=== PATIENT | female | born 1950 | race Caucasian/White ===

== ENCOUNTER 2021-02-17 15:15 | Observation (INO) | payer MEDICARE, OTHER ==
[~2021-02-17] VITALS: Ht 152.4 cm; Wt 113.4 kg
[2021-02-17 16:13] LABS: BASOPHILS % 0.2 % (0.0-1.0); EOSINOPHILS % 0.3 % (0.0-6.0); HEMOGLOBIN 9.9 g/dL (12.0-16.0); LYMPHOCYTES # (AUTO) 1.5 (1.0-3.2); LYMPHOCYTES % 14.6 % (18.0-39.1); MEAN CORPUSCULAR HEMOGLOBIN 28.6 pg (28-32); MEAN CORPUSCULAR HGB CONC 30.9 g/dL (31-35); MEAN CORPUSCULAR VOLUME 92.5 fL (81-99); MONOCYTES % 10.2 % (4.4-11.3); NEUTROPHILS # (AUTO) 7.4 (2.1-6.9); NEUTROPHILS % 73.8 % (38.7-80.0); PLATELET COUNT 204 x10e3/uL (140-360); RED BLOOD COUNT 3.46 x10e6/uL (3.6-5.1); RED CELL DISTRIBUTION WIDTH 14.1 % (11.7-14.4)
[2021-02-17 16:32] LABS: ALBUMIN/GLOBULIN RATIO 0.7 (0.8-2.0); ANION GAP 14.9 mmol/L (8-16); CALCIUM 8.1 mg/dL (8.4-10.2); CREATININE, SERUM 2.17 mg/dL (0.57-1.11); POTASSIUM 4.9 mmol/L (3.5-5.1)
[2021-02-17] MEDS ORDERED: DEXTROSE 50% SYRINGE 50 ML IV PRN (18:45)
[2021-02-17] MEDS ORDERED: SODIUM CHLORIDE FLUSH 10 ML SYR INJ PRN (18:45)
[2021-02-17 19:50] VITALS: BP 149/59
[2021-02-17] MEDS ORDERED: CRESTOR10 MG PO (20:21)
[2021-02-17] MEDS ORDERED: VASCEPA1 GM PO (20:21)
[2021-02-17] MEDS ORDERED: LEVOTHYROXINE50 MCG PO (20:21)
[2021-02-17] MEDS ORDERED: TRAZODONE HCL50 MG PO (20:21)
[2021-02-17] MEDS ORDERED: AMLODIPINE BESY10 MG PO (20:21)
[2021-02-17] MEDS ORDERED: ASPIRIN81 MG PO (20:21)
[2021-02-17] MEDS ORDERED: PROTONIX20 MG PO (20:21)
[2021-02-17] MEDS ORDERED: TRADJENTA5 MG PO (20:21)
[2021-02-17] MEDS ORDERED: HYDRALAZINE HCL50 MG PO (20:21)
[2021-02-17] MEDS ORDERED: LOSARTAN POTASS25 MG PO (20:21)
[2021-02-17] MEDS ORDERED: MULTI-VITAMIN1 EACH PO (20:21)
[2021-02-17] MEDS ORDERED: METOPROLOL TAR100 MG PO (20:21)
[2021-02-17] MEDS ORDERED: LEVOFLOXACIN250 MG PO (20:21)
[2021-02-17 20:35] VITALS: BP 149/59
[2021-02-17] MEDS ORDERED: LANTUS 3ML100 UNITS/ SQ (20:35)
[2021-02-17] MEDS ORDERED: HUMALOG100 UNIT/1 (20:35)
[2021-02-17 21:00] VITALS: BP 149/59
[2021-02-17] MEDS: INSULIN REGULAR, HUMAN 100 UNIT/1 ML 3ML VIAL SQ SCH (21:00)
[2021-02-17] MEDS: FUROSEMIDE INJ 10 MG/ML 4 ML VIAL IV SCH (21:00)
[2021-02-17 22:38] LABS: CREATINE KINASE MB 3.9 ng/mL (0-5.0)
[2021-02-18] VITALS (8 sets, daily range): BP systolic 141–157; BP diastolic 51–73
[2021-02-18 05:23] LABS: BASOPHILS % 0.1 % (0.0-1.0); EOSINOPHILS % 0.2 % (0.0-6.0); HEMOGLOBIN 10.1 g/dL (12.0-16.0); LYMPHOCYTES # (AUTO) 1.6 (1.0-3.2); LYMPHOCYTES % 15.9 % (18.0-39.1); MEAN CORPUSCULAR HGB CONC 31.6 g/dL (31-35); MONOCYTES % 10.1 % (4.4-11.3); NEUTROPHILS # (AUTO) 7.4 (2.1-6.9); PLATELET COUNT 213 x10e3/uL (140-360); RED BLOOD COUNT 3.48 x10e6/uL (3.6-5.1); RED CELL DISTRIBUTION WIDTH 13.9 % (11.7-14.4)
[2021-02-18 06:02] LABS: ALBUMIN 2.9 g/dL (3.5-5.0); ALBUMIN/GLOBULIN RATIO 0.8 (0.8-2.0); ANION GAP 16.4 mmol/L (8-16); CALCIUM 8.1 mg/dL (8.4-10.2); CREATININE, SERUM 2.24 mg/dL (0.57-1.11); POTASSIUM 4.4 mmol/L (3.5-5.1)
[2021-02-18 06:07] LABS: CALCIUM IONIZED 1.1 mmol/L (1.09-1.30)
[2021-02-18 06:15] LABS: CREATINE KINASE MB 4.1 ng/mL (0-5.0)
[2021-02-18 06:24] LABS: MAGNESIUM 1.9 MG/DL (1.3-2.1); PHOSPHORUS 3.2 MG/DL (2.3-4.7)
[2021-02-18 06:45] LABS: FERRITIN 160.8 ng/mL (4.63-204.00)
[2021-02-18] MEDS: INSULIN REGULAR, HUMAN 100 UNIT/1 ML 3ML VIAL SQ SCH ×4 (07:30→21:00)
[2021-02-18] MEDS ORDERED: AMLODIPINE BESYLATE 10 MG TAB PO SCH (09:00)
[2021-02-18] MEDS ORDERED: LEVOTHYROXINE SODIUM 25 MCG TABLET PO SCH (09:00)
[2021-02-18] MEDS ORDERED: PANTOPRAZOLE SOD 40 MG TABEC PO SCH (09:00)
[2021-02-18] MEDS: FUROSEMIDE INJ 10 MG/ML 4 ML VIAL IV SCH ×2 (10:29→22:27)
[2021-02-18] MEDS: ASPIRIN 81 MG CHEW TAB PO SCH (10:30)
[2021-02-18] MEDS: LOSARTAN POTASSIUM 25 MG TAB PO SCH (10:43)
[2021-02-18] MEDS: METOPROLOL TARTRATE 50 MG TAB PO SCH ×2 (10:53→17:29)
[2021-02-18 11:18] LABS: CREATINE KINASE MB 2.8 ng/mL (0-5.0)
[2021-02-18] MEDS ORDERED: INSULIN GLARGINE 100 UNITS/ML VIAL SQ SCH (21:00)
[2021-02-18] MEDS ORDERED: CRESTOR 10MG PO SCH (21:00)
[2021-02-18] MEDS ORDERED: TRAZODONE HCL 50 MG TAB PO SCH (21:00)
[2021-02-19] VITALS: BP 107/39
[2021-02-19 04:00] VITALS: BP 117/42
[2021-02-19 05:36] LABS: ANION GAP 17.6 mmol/L (8-16); CALCIUM 8.7 mg/dL (8.4-10.2); CREATININE, SERUM 2.52 mg/dL (0.57-1.11); POTASSIUM 4.6 mmol/L (3.5-5.1)
[2021-02-19] MEDS ORDERED: LEVOTHYROXINE SODIUM 25 MCG TABLET PO SCH (06:00)
[2021-02-19] MEDS ORDERED: PANTOPRAZOLE SOD 40 MG TABEC PO SCH (07:30)
[2021-02-19] MEDS: INSULIN REGULAR, HUMAN 100 UNIT/1 ML 3ML VIAL SQ SCH ×2 (07:30→12:16)
[2021-02-19 07:49] VITALS: BP 110/59
[2021-02-19 08:20] VITALS: BP 110/59
[2021-02-19] MEDS: ASPIRIN 81 MG CHEW TAB PO SCH (09:28)
[2021-02-19] MEDS: LOSARTAN POTASSIUM 25 MG TAB PO SCH (09:28)
[2021-02-19 11:47] VITALS: BP 144/54
[2021-02-19] MEDS ORDERED: TESSALON PERLE100 MG PO (13:45)
[2021-02-19] MEDS ORDERED: LASIX10 MG/ML PO (13:45)
[2021-02-19] MEDS ORDERED: ONDANSETRON ODT4 MG PO (13:46)
[2021-02-19] MEDS ORDERED: LASIX40 MG PO (14:07)
[2021-02-19] MEDS: METOPROLOL TARTRATE 50 MG TAB PO SCH (15:04)
== END 2021-02-19 14:58 | disposition home or self-care (01) ==
LOC: ER 17:32 → ERHOLD 18:43 → MED/SURG 19:57
PROVIDERS: ADMIT Internal Medicine; ATTEND Internal Medicine
DX: I11.0 Hypertensive heart disease with heart failure (principal); I50.9 Heart failure, unspecified; I10 Essential (primary) hypertension; E11.9 Type 2 diabetes mellitus without complications; E03.9 Hypothyroidism, unspecified; Z90.49 Acquired absence of other specified parts of digestive tract; E66.01 Morbid (severe) obesity due to excess calories; E78.5 Hyperlipidemia, unspecified; Z85.3 Personal history of malignant neoplasm of breast; J96.01 Acute respiratory failure with hypoxia; N17.9 Acute kidney failure, unspecified; J90 Pleural effusion, not elsewhere classified; Z20.822 Contact with and (suspected) exposure to COVID-19
CPT/HCPCS: 36415 ×3; 71045; 71250; 78597; 80048; 80053 ×2; 82550 ×2; 82553 ×2; 82607; 82728; 82746; 82948 ×3; 83540; 83605; 83735; 83880; 84100; 84466; 84484 ×2; 85025 ×2; 85379; 87040; 93005; 93306; 97161; 97530; 99285; A9540; G0378 ×3; J1815; J1817; J1940 ×2; S0164 ×2; U0002

== ENCOUNTER 2021-04-01 09:57 | Inpatient (IN) | payer MEDICARE, OTHER ==
[~2021-04-01] VITALS: Ht 157.5 cm; Wt 87.5 kg
[~2021-04-01 09:57] MED LIST: AMLODIPINE BESY10 MG PO; ASPIRIN81 MG PO; CRESTOR10 MG PO; HUMALOG100 UNIT/1; HYDRALAZINE HCL50 MG PO; LANTUS 3ML100 UNITS/ SQ; LASIX10 MG/ML PO; LASIX40 MG PO; LEVOFLOXACIN250 MG PO; LEVOTHYROXINE50 MCG PO; LOSARTAN POTASS25 MG PO; METOPROLOL TAR100 MG PO; MULTI-VITAMIN1 EACH PO; ONDANSETRON ODT4 MG PO; PROTONIX20 MG PO; TESSALON PERLE100 MG PO; TRADJENTA5 MG PO; TRAZODONE HCL50 MG PO; VASCEPA1 GM PO
[2021-04-01 11:15] LABS: BASOPHILS % 0.3 % (0.0-1.0); EOSINOPHILS # (AUTO) 0.1 (0.0-0.4); EOSINOPHILS % 0.5 % (0.0-6.0); HEMATOCRIT 34.4 % (34.2-44.1); HEMOGLOBIN 10.4 g/dL (12.0-16.0); LYMPHOCYTES % 18.7 % (18.0-39.1); MEAN CORPUSCULAR HEMOGLOBIN 28.6 pg (28-32); MEAN CORPUSCULAR HGB CONC 30.2 g/dL (31-35); MEAN CORPUSCULAR VOLUME 94.5 fL (81-99); MONOCYTES % 9.2 % (4.4-11.3); NEUTROPHILS # (AUTO) 7.6 (2.1-6.9); PLATELET COUNT 202 x10e3/uL (140-360); RED BLOOD COUNT 3.64 x10e6/uL (3.6-5.1); RED CELL DISTRIBUTION WIDTH 13.8 % (11.7-14.4)
[2021-04-01 11:27] LABS: ALBUMIN 3.3 g/dL (3.5-5.0); ALBUMIN/GLOBULIN RATIO 0.7 (0.8-2.0); ANION GAP 13.3 mmol/L (8-16); CALCIUM 8.5 mg/dL (8.4-10.2); CREATININE, SERUM 2.11 mg/dL (0.57-1.11); POTASSIUM 4.3 mmol/L (3.5-5.1)
[2021-04-01 11:37] LABS: CREATINE KINASE MB 0.7 ng/mL (0-5.0)
[2021-04-01] MEDS ORDERED: FUROSEMIDE INJ 10 MG/ML 4 ML VIAL IV ONE (13:00)
[2021-04-01] MEDS ORDERED: DEXTROSE 50% SYRINGE 50 ML IV PRN ×3 (13:30→18:45)
[2021-04-01 14:43] LABS: CREATINE KINASE MB 0.8 ng/mL (0-5.0)
[2021-04-01] MEDS: INSULIN REGULAR, HUMAN 100 UNIT/1 ML SQ SCH ×2 (16:47→21:00)
[2021-04-01] MEDS ORDERED: ALBUTEROL/IPRATROPIUM 3 ML NEB NEB PRN (17:15)
[2021-04-01] MEDS ORDERED: DOCUSATE SODIUM 100 MG CAP PO PRN (17:15)
[2021-04-01] MEDS ORDERED: LIDOCAINE 4% PATCH TP PRN (17:15)
[2021-04-01] MEDS ORDERED: SIMETHICONE 80 MG CHEW PO PRN (17:15)
[2021-04-01] MEDS ORDERED: MELATONIN 5 MG TABLET PO PRN (17:15)
[2021-04-01] MEDS ORDERED: ONDANSETRON HCL INJ 2MG/ML 2ML 2 MG/ML VIAL IV PRN (17:15)
[2021-04-01] MEDS ORDERED: HYDRALAZINE HCL 20 MG/ML VIAL IV PRN (17:15)
[2021-04-01] MEDS ORDERED: POTASSIUM CHLORIDE 20 MEQ TAB CR PO PRN (17:15)
[2021-04-01] MEDS ORDERED: TRAMADOL HCL 50 MG TAB PO PRN (17:15)
[2021-04-01] MEDS ORDERED: ACETAMINOPHEN 325 MG TAB PO PRN (17:15)
[2021-04-01] MEDS ORDERED: DIPHENHYDRAMINE HCL 25 MG CAP PO PRN (17:15)
[2021-04-01] MEDS ORDERED: BENZONATATE 100 MG CAP PO PRN (17:15)
[2021-04-01] MEDS ORDERED: METOPROLOL TARTRATE 50 MG TAB PO SCH (17:30)
[2021-04-01] MEDS ORDERED: ASPIRIN 81 MG CHEW TAB PO ONE (17:45)
[2021-04-01] MEDS: FUROSEMIDE INJ 10 MG/ML 4 ML VIAL IV SCH (19:50)
[2021-04-01] MEDS: HEPARIN SOD (PORCINE) 5,000 UNIT/ML VIAL SC SCH (21:00)
[2021-04-01] MEDS: SIMVASTATIN 20 MG TAB PO SCH (21:00)
[2021-04-02] VITALS (7 sets, daily range): BP systolic 130–168; BP diastolic 38–73
[2021-04-02] MEDS: FUROSEMIDE INJ 10 MG/ML 4 ML VIAL IV SCH ×4 (03:00→20:45)
[2021-04-02] MEDS ORDERED: ACETAMINOPHEN 325 MG TAB ONE (04:33)
[2021-04-02] MEDS ORDERED: FUROSEMIDE INJ 10 MG/ML 4 ML VIAL ONE (04:34)
[2021-04-02 05:21] LABS: BASOPHILS % 0.4 % (0.0-1.0); EOSINOPHILS # (AUTO) 0.1 (0.0-0.4); HEMATOCRIT 33.3 % (34.2-44.1); HEMOGLOBIN 10.1 g/dL (12.0-16.0); LYMPHOCYTES # (AUTO) 1.6 (1.0-3.2); LYMPHOCYTES % 14.5 % (18.0-39.1); MEAN CORPUSCULAR HEMOGLOBIN 28.5 pg (28-32); MEAN CORPUSCULAR HGB CONC 30.3 g/dL (31-35); MEAN CORPUSCULAR VOLUME 93.8 fL (81-99); MONOCYTES # (AUTO) 0.9 (0.2-0.8); MONOCYTES % 8.4 % (4.4-11.3); NEUTROPHILS # (AUTO) 8.3 (2.1-6.9); NEUTROPHILS % 75.1 % (38.7-80.0); PLATELET COUNT 181 x10e3/uL (140-360); RED BLOOD COUNT 3.55 x10e6/uL (3.6-5.1); RED CELL DISTRIBUTION WIDTH 13.5 % (11.7-14.4)
[2021-04-02 05:39] LABS: ALBUMIN/GLOBULIN RATIO 0.6 (0.8-2.0); ANION GAP 14.9 mmol/L (8-16); CALCIUM 8.7 mg/dL (8.4-10.2); CREATININE, SERUM 2.19 mg/dL (0.57-1.11); POTASSIUM 3.9 mmol/L (3.5-5.1)
[2021-04-02 06:14] LABS: CREATINE KINASE MB 1.1 ng/mL (0-5.0)
[2021-04-02] MEDS: LEVOTHYROXINE SODIUM 25 MCG TABLET PO SCH (06:26)
[2021-04-02 06:37] LABS: CHOL/HDL RATIO 2.6 (3.0-3.6); MAGNESIUM 1.8 MG/DL (1.3-2.1); PHOSPHORUS 3.7 MG/DL (2.3-4.7)
[2021-04-02 06:57] LABS: THYROID STIMULATING HORMONE 2.257 uIU/mL (0.350-4.940)
[2021-04-02] MEDS: INSULIN REGULAR, HUMAN 100 UNIT/1 ML SQ SCH ×4 (07:30→20:47)
[2021-04-02] MEDS: PANTOPRAZOLE SOD 40 MG TABEC PO SCH (07:30)
[2021-04-02] MEDS: HEPARIN SOD (PORCINE) 5,000 UNIT/ML VIAL SC SCH ×2 (09:00→20:47)
[2021-04-02] MEDS: AMLODIPINE BESYLATE 10 MG TAB PO SCH (09:00)
[2021-04-02] MEDS ORDERED: PANTOPRAZOLE SOD 40 MG TABEC PO SCH (09:00)
[2021-04-02] MEDS ORDERED: ASPIRIN 81 MG ENTERIC COATED PO SCH (09:00)
[2021-04-02] MEDS: METOPROLOL TARTRATE 50 MG TAB PO SCH ×2 (09:00→20:45)
[2021-04-02] MEDS: ASPIRIN 81 MG CHEW TAB PO SCH (09:00)
[2021-04-02] MEDS: SIMVASTATIN 20 MG TAB PO SCH (20:45)
[2021-04-03] VITALS (7 sets, daily range): BP systolic 129–149; BP diastolic 49–62
[2021-04-03] MEDS: FUROSEMIDE INJ 10 MG/ML 4 ML VIAL IV SCH ×3 (04:38→20:50)
[2021-04-03] MEDS: LEVOTHYROXINE SODIUM 25 MCG TABLET PO SCH (05:58)
[2021-04-03] MEDS: PANTOPRAZOLE SOD 40 MG TABEC PO SCH (09:33)
[2021-04-03] MEDS: ASPIRIN 81 MG CHEW TAB PO SCH (09:35)
[2021-04-03] MEDS: METOPROLOL TARTRATE 50 MG TAB PO SCH ×2 (09:36→20:50)
[2021-04-03] MEDS: AMLODIPINE BESYLATE 10 MG TAB PO SCH (09:37)
[2021-04-03] MEDS: HEPARIN SOD (PORCINE) 5,000 UNIT/ML VIAL SC SCH ×2 (09:46→21:25)
[2021-04-03] MEDS: INSULIN REGULAR, HUMAN 100 UNIT/1 ML SQ SCH ×4 (09:48→21:26)
[2021-04-03 14:51] LABS: BASOPHILS % 0.4 % (0.0-1.0); EOSINOPHILS # (AUTO) 0.2 (0.0-0.4); EOSINOPHILS % 2.2 % (0.0-6.0); HEMATOCRIT 33.1 % (34.2-44.1); HEMOGLOBIN 10.1 g/dL (12.0-16.0); LYMPHOCYTES # (AUTO) 1.7 (1.0-3.2); LYMPHOCYTES % 23.9 % (18.0-39.1); MEAN CORPUSCULAR HEMOGLOBIN 28.9 pg (28-32); MEAN CORPUSCULAR HGB CONC 30.5 g/dL (31-35); MEAN CORPUSCULAR VOLUME 94.8 fL (81-99); MONOCYTES # (AUTO) 0.7 (0.2-0.8); MONOCYTES % 10.3 % (4.4-11.3); NEUTROPHILS # (AUTO) 4.5 (2.1-6.9); NEUTROPHILS % 62.8 % (38.7-80.0); PLATELET COUNT 208 x10e3/uL (140-360); RED BLOOD COUNT 3.49 x10e6/uL (3.6-5.1); RED CELL DISTRIBUTION WIDTH 13.2 % (11.7-14.4)
[2021-04-03 15:08] LABS: ANION GAP 13.1 mmol/L (8-16); CALCIUM 8.3 mg/dL (8.4-10.2); CREATININE, SERUM 2.62 mg/dL (0.57-1.11); POTASSIUM 4.1 mmol/L (3.5-5.1)
[2021-04-03] MEDS: SIMVASTATIN 20 MG TAB PO SCH (21:15)
[2021-04-04] VITALS: BP 145/64
[2021-04-04 04:00] VITALS: BP 142/62
[2021-04-04] MEDS: FUROSEMIDE INJ 10 MG/ML 4 ML VIAL IV SCH (04:15)
[2021-04-04] MEDS: LEVOTHYROXINE SODIUM 25 MCG TABLET PO SCH (05:51)
[2021-04-04 06:17] LABS: BASOPHILS % 0.3 % (0.0-1.0); EOSINOPHILS # (AUTO) 0.2 (0.0-0.4); EOSINOPHILS % 2.9 % (0.0-6.0); HEMATOCRIT 33.1 % (34.2-44.1); HEMOGLOBIN 10.3 g/dL (12.0-16.0); LYMPHOCYTES # (AUTO) 1.8 (1.0-3.2); LYMPHOCYTES % 27.5 % (18.0-39.1); MEAN CORPUSCULAR HEMOGLOBIN 28.9 pg (28-32); MEAN CORPUSCULAR HGB CONC 31.1 g/dL (31-35); MEAN CORPUSCULAR VOLUME 92.7 fL (81-99); MONOCYTES # (AUTO) 0.8 (0.2-0.8); MONOCYTES % 11.4 % (4.4-11.3); NEUTROPHILS # (AUTO) 3.8 (2.1-6.9); NEUTROPHILS % 57.6 % (38.7-80.0); PLATELET COUNT 211 x10e3/uL (140-360); RED BLOOD COUNT 3.57 x10e6/uL (3.6-5.1)
[2021-04-04 06:37] LABS: ANION GAP 14.5 mmol/L (8-16); CALCIUM 8.3 mg/dL (8.4-10.2); CREATININE, SERUM 2.45 mg/dL (0.57-1.11); POTASSIUM 3.5 mmol/L (3.5-5.1)
[2021-04-04 07:53] VITALS: BP 132/51
[2021-04-04] MEDS: METOPROLOL TARTRATE 50 MG TAB PO SCH (08:42)
[2021-04-04] MEDS: PANTOPRAZOLE SOD 40 MG TABEC PO SCH (08:42)
[2021-04-04] MEDS: ASPIRIN 81 MG CHEW TAB PO SCH (08:42)
[2021-04-04] MEDS: AMLODIPINE BESYLATE 10 MG TAB PO SCH (08:43)
[2021-04-04] MEDS: HEPARIN SOD (PORCINE) 5,000 UNIT/ML VIAL SC SCH (08:44)
[2021-04-04] MEDS: INSULIN REGULAR, HUMAN 100 UNIT/1 ML SQ SCH ×3 (08:48→16:43)
[2021-04-04 08:57] VITALS: BP 132/51
[2021-04-04 11:37] VITALS: BP 138/65
[2021-04-04 15:17] VITALS: BP 119/51
[2021-04-04] MEDS ORDERED: MECLIZINE HCL 12.5 MG TAB PO PRN (15:30)
[2021-04-04] MEDS ORDERED: SCOPOLAMINE 1.5 MG PATCH TOP NR (15:30)
== END 2021-04-04 19:00 | disposition home or self-care (01) | DRG 291 ==
LOC: ER 10:15 → ERHOLD 12:09 → MED/SURG 04-02 00:20 → OBSVTOIN 04-02 17:55
PROVIDERS: ADMIT Internal Medicine; ATTEND Internal Medicine
DX: I13.0 Hypertensive heart and chronic kidney disease with heart failure and stage 1 through stage 4 chronic kidney disease, or unspecified chronic kidney disease (principal); I50.33 Acute on chronic diastolic (congestive) heart failure; N18.4 Chronic kidney disease, stage 4 (severe); E11.22 Type 2 diabetes mellitus with diabetic chronic kidney disease; Z79.899 Other long term (current) drug therapy; Z79.4 Long term (current) use of insulin; E78.5 Hyperlipidemia, unspecified; G47.33 Obstructive sleep apnea (adult) (pediatric); E03.9 Hypothyroidism, unspecified; E66.9 Obesity, unspecified; Z68.35 Body mass index [BMI] 35.0-35.9, adult; I27.22 Pulmonary hypertension due to left heart disease; I35.0 Nonrheumatic aortic (valve) stenosis; Z20.822 Contact with and (suspected) exposure to COVID-19
CPT/HCPCS: 36415; 71045; 71250; 80048; 80053; 80061; 82550; 82553; 82948; 83036; 83735; 83880; 84100; 84443; 84484; 85025; 93005; 93306; G0378; J1644; J1817; J1940; U0002

== ENCOUNTER 2021-09-27 13:04 | Inpatient (IN) | payer MEDICARE, OTHER ==
[~2021-09-27] VITALS: Ht 157.5 cm; Wt 87.5 kg
[2021-09-27 13:23] LABS: BASOPHILS % 0.5 % (0.0-1.0); EOSINOPHILS # (AUTO) 0.1 (0.0-0.4); EOSINOPHILS % 0.9 % (0.0-6.0); HEMATOCRIT 31.5 % (34.2-44.1); HEMOGLOBIN 9.4 g/dL (12.0-16.0); LYMPHOCYTES # (AUTO) 1.3 (1.0-3.2); LYMPHOCYTES % 18.9 % (18.0-39.1); MEAN CORPUSCULAR HEMOGLOBIN 28.7 pg (28-32); MEAN CORPUSCULAR HGB CONC 29.8 g/dL (31-35); MONOCYTES # (AUTO) 0.5 (0.2-0.8); MONOCYTES % 6.8 % (4.4-11.3); NEUTROPHILS # (AUTO) 4.8 (2.1-6.9); NEUTROPHILS % 72.1 % (38.7-80.0); PLATELET COUNT 283 x10e3/uL (140-360); RED BLOOD COUNT 3.28 x10e6/uL (3.6-5.1)
[2021-09-27 13:32] LABS: CLARITY,URINE CLEAR (CLEAR); COLOR,URINE YELLOW (YELLOW); INR 1.06; KETONES,URINE NEGATIVE (NEGATIVE); LEUKOCYTE ESTERASE ,URINE NEGATIVE (NEGATIVE); NITRITE,URINE NEGATIVE (NEGATIVE); PARTIAL THROMBOPLASTIN TIME 35.6 seconds (23.8-35.5); PROTEIN,URINE DIPSTICK 1+ (NEGATIVE); PROTHROMBIN TIME 14.6 seconds (11.9-14.5); URINE UROBILINOGEN 0.2 mg/dL (0.2 - 1)
[2021-09-27 13:38] LABS: EPITHELIAL CELLS,URINE MODERATE /LPF; RBC,URINE 0-5 /HPF (0-5); WBC,URINE (MAN) 0-5 /HPF (0-5)
[2021-09-27 13:39] LABS: ALBUMIN 3.2 g/dL (3.5-5.0); ALBUMIN/GLOBULIN RATIO 0.7 (0.8-2.0); ANION GAP 11.5 mmol/L (8-16); CREATININE, SERUM 2.75 mg/dL (0.57-1.11); POTASSIUM 4.5 mmol/L (3.5-5.1)
[2021-09-27 13:45] LABS: CREATINE KINASE MB 1.6 ng/mL (0-5.0)
[2021-09-27] MEDS ORDERED: CEFTRIAXONE 1 GM in SODIUM CHLORIDE 0.9% 50ML 50 ML IV ONE (15:00)
[2021-09-27] MEDS ORDERED: FUROSEMIDE INJ 10 MG/ML 4 ML VIAL IV ONE ×2 (15:30→17:30)
[2021-09-27 15:53] LABS: ABG HCO3 21 mmol/L (22-26); ABG PCO2 41 mmHg (35-45); ABG PH 7.34 (7.35-7.45); ABG PO2 151 mmHg (80-105)
[2021-09-27 15:54] LABS: ABG TCO2 23
[2021-09-27] MEDS ORDERED: ONDANSETRON HCL INJ 2MG/ML 2ML 2 MG/ML VIAL IV PRN (17:15)
[2021-09-27 21:54] LABS: CREATINE KINASE MB 1.4 ng/mL (0-5.0)
[2021-09-27] MEDS: FUROSEMIDE INJ 10 MG/ML 4 ML VIAL IV SCH (22:00)
[2021-09-28] VITALS (7 sets, daily range): BP systolic 140–147; BP diastolic 51–60
[2021-09-28 05:08] LABS: BASOPHILS % 0.3 % (0.0-1.0); EOSINOPHILS # (AUTO) 0.1 (0.0-0.4); EOSINOPHILS % 1.4 % (0.0-6.0); HEMATOCRIT 29.9 % (34.2-44.1); LYMPHOCYTES # (AUTO) 1.3 (1.0-3.2); LYMPHOCYTES % 20.1 % (18.0-39.1); MEAN CORPUSCULAR HEMOGLOBIN 28.8 pg (28-32); MEAN CORPUSCULAR HGB CONC 30.1 g/dL (31-35); MEAN CORPUSCULAR VOLUME 95.8 fL (81-99); MONOCYTES # (AUTO) 0.6 (0.2-0.8); MONOCYTES % 8.9 % (4.4-11.3); NEUTROPHILS # (AUTO) 4.4 (2.1-6.9); NEUTROPHILS % 68.8 % (38.7-80.0); PLATELET COUNT 292 x10e3/uL (140-360); RED BLOOD COUNT 3.12 x10e6/uL (3.6-5.1); RED CELL DISTRIBUTION WIDTH 14.1 % (11.7-14.4)
[2021-09-28 05:20] LABS: ALBUMIN 3.1 g/dL (3.5-5.0); ALBUMIN/GLOBULIN RATIO 0.7 (0.8-2.0); ANION GAP 10.2 mmol/L (8-16); CALCIUM 9.2 mg/dL (8.4-10.2); CHOL/HDL RATIO 4.9 (3.0-3.6); CREATININE, SERUM 2.61 mg/dL (0.57-1.11); POTASSIUM 4.2 mmol/L (3.5-5.1)
[2021-09-28 05:53] LABS: CREATINE KINASE MB 1.2 ng/mL (0-5.0)
[2021-09-28] MEDS: FUROSEMIDE INJ 10 MG/ML 4 ML VIAL IV SCH ×3 (06:00→21:22)
[2021-09-28] MEDS ORDERED: BENZONATATE 100 MG CAP PO PRN (09:45)
[2021-09-28] MEDS ORDERED: DEXTROSE 50% SYRINGE 50 ML IV PRN (09:45)
[2021-09-28] MEDS ORDERED: LEVOTHYROXINE SODIUM 50 MCG TAB ONE (10:03)
[2021-09-28] MEDS: METOPROLOL TARTRATE 50 MG TAB PO SCH ×2 (10:07→16:16)
[2021-09-28] MEDS: LEVOTHYROXINE SODIUM 25 MCG TABLET PO SCH (10:07)
[2021-09-28] MEDS: PANTOPRAZOLE SOD 40 MG TABEC PO SCH (10:07)
[2021-09-28] MEDS: INSULIN LISPRO 100 UNIT/1 ML 3ML VIAL SQ SCH ×5 (13:11→21:00)
[2021-09-28] MEDS: NON-FORMULARY MEDICATION (Icosapent Ethyl (Vascepa) 2 CAP) PO SCH (16:21)
[2021-09-28 16:31] LABS: CREATINE KINASE MB 1.2 ng/mL (0-5.0)
[2021-09-28] MEDS: INSULIN GLARGINE 100 UNITS/ML VIAL SQ SCH (21:00)
[2021-09-28] MEDS: SIMVASTATIN 20 MG TAB PO SCH (21:22)
[2021-09-28] MEDS: TRAZODONE HCL 50 MG TAB PO SCH (21:22)
[2021-09-29] VITALS (8 sets, daily range): BP systolic 112–138; BP diastolic 42–94
[2021-09-29 05:40] LABS: BASOPHILS % 0.4 % (0.0-1.0); EOSINOPHILS # (AUTO) 0.2 (0.0-0.4); EOSINOPHILS % 2.4 % (0.0-6.0); HEMATOCRIT 30.6 % (34.2-44.1); HEMOGLOBIN 9.7 g/dL (12.0-16.0); LYMPHOCYTES # (AUTO) 1.7 (1.0-3.2); LYMPHOCYTES % 25.2 % (18.0-39.1); MEAN CORPUSCULAR HGB CONC 31.7 g/dL (31-35); MEAN CORPUSCULAR VOLUME 91.6 fL (81-99); MONOCYTES # (AUTO) 0.8 (0.2-0.8); MONOCYTES % 11.9 % (4.4-11.3); NEUTROPHILS % 59.7 % (38.7-80.0); PLATELET COUNT 308 x10e3/uL (140-360); RED BLOOD COUNT 3.34 x10e6/uL (3.6-5.1); RED CELL DISTRIBUTION WIDTH 13.7 % (11.7-14.4)
[2021-09-29 06:12] LABS: ALBUMIN 2.9 g/dL (3.5-5.0); ALBUMIN/GLOBULIN RATIO 0.6 (0.8-2.0); ANION GAP 17.2 mmol/L (8-16); CALCIUM 9.4 mg/dL (8.4-10.2); CREATININE, SERUM 2.93 mg/dL (0.57-1.11); POTASSIUM 4.2 mmol/L (3.5-5.1)
[2021-09-29 06:33] LABS: CHOL/HDL RATIO 4.4 (3.0-3.6)
[2021-09-29] MEDS: FUROSEMIDE INJ 10 MG/ML 4 ML VIAL IV SCH ×3 (06:44→22:00)
[2021-09-29] MEDS: LEVOTHYROXINE SODIUM 25 MCG TABLET PO SCH (06:44)
[2021-09-29 06:59] LABS: THYROID STIMULATING HORMONE 1.319 uIU/mL (0.350-4.940)
[2021-09-29] MEDS: INSULIN LISPRO 100 UNIT/1 ML 3ML VIAL SQ SCH ×7 (09:00→21:00)
[2021-09-29] MEDS: NON-FORMULARY MEDICATION (Icosapent Ethyl (Vascepa) 2 CAP) PO SCH ×2 (09:00→16:47)
[2021-09-29] MEDS: MULTIVITAMINS/MINERALS TAB PO SCH (09:40)
[2021-09-29] MEDS: ASPIRIN 81 MG CHEW TAB PO SCH (09:40)
[2021-09-29] MEDS: METOPROLOL TARTRATE 50 MG TAB PO SCH ×2 (09:40→16:47)
[2021-09-29] MEDS: PANTOPRAZOLE SOD 40 MG TABEC PO SCH (09:40)
[2021-09-29 11:07] LABS: CREATININE,URINE RANDOM 44.55 mg/dL (47-110); TOTAL PROTEIN, URINE 32.5 mg/dL (1-14)
[2021-09-29 11:08] LABS: PROTEIN/CREATININE RATIO,URINE 0.73
[2021-09-29] MEDS: INSULIN GLARGINE 100 UNITS/ML VIAL SQ SCH (21:00)
[2021-09-29] MEDS: TRAZODONE HCL 50 MG TAB PO SCH (21:30)
[2021-09-29] MEDS: SIMVASTATIN 20 MG TAB PO SCH (21:30)
[2021-09-30] VITALS (11 sets, daily range): BP systolic 106–134; BP diastolic 39–73
[2021-09-30] MEDS: FUROSEMIDE INJ 10 MG/ML 4 ML VIAL IV SCH ×4 (00:03→21:36)
[2021-09-30] MEDS: LEVOTHYROXINE SODIUM 25 MCG TABLET PO SCH (05:43)
[2021-09-30 06:08] LABS: ALBUMIN 2.9 g/dL (3.5-5.0); ALBUMIN/GLOBULIN RATIO 0.6 (0.8-2.0); ANION GAP 16.9 mmol/L (8-16); CALCIUM 9.6 mg/dL (8.4-10.2); CREATININE, SERUM 3.12 mg/dL (0.57-1.11); POTASSIUM 3.9 mmol/L (3.5-5.1)
[2021-09-30] MEDS: INSULIN LISPRO 100 UNIT/1 ML 3ML VIAL SQ SCH ×7 (07:30→20:40)
[2021-09-30] MEDS: NON-FORMULARY MEDICATION (Icosapent Ethyl (Vascepa) 2 CAP) PO SCH ×3 (09:00→17:00)
[2021-09-30] MEDS: METOPROLOL TARTRATE 50 MG TAB PO SCH ×2 (09:00→17:00)
[2021-09-30] MEDS: PANTOPRAZOLE SOD 40 MG TABEC PO SCH (09:53)
[2021-09-30] MEDS: ASPIRIN 81 MG CHEW TAB PO SCH (09:54)
[2021-09-30] MEDS: MULTIVITAMINS/MINERALS TAB PO SCH (09:54)
[2021-09-30] MEDS: INSULIN GLARGINE 100 UNITS/ML VIAL SQ SCH (20:41)
[2021-09-30] MEDS: SIMVASTATIN 20 MG TAB PO SCH (21:36)
[2021-09-30] MEDS: TRAZODONE HCL 50 MG TAB PO SCH (21:36)
[2021-10-01] VITALS (7 sets, daily range): BP systolic 128–138; BP diastolic 52–63
[2021-10-01] MEDS: FUROSEMIDE INJ 10 MG/ML 4 ML VIAL IV SCH (05:09)
[2021-10-01] MEDS: LEVOTHYROXINE SODIUM 25 MCG TABLET PO SCH (05:09)
[2021-10-01] MEDS: INSULIN LISPRO 100 UNIT/1 ML 3ML VIAL SQ SCH ×7 (07:30→19:58)
[2021-10-01] MEDS: METOPROLOL TARTRATE 50 MG TAB PO SCH ×2 (09:00→16:51)
[2021-10-01] MEDS: NON-FORMULARY MEDICATION (Icosapent Ethyl (Vascepa) 2 CAP) PO SCH ×2 (09:00→17:00)
[2021-10-01] MEDS: PANTOPRAZOLE SOD 40 MG TABEC PO SCH (09:13)
[2021-10-01] MEDS: MULTIVITAMINS/MINERALS TAB PO SCH (09:15)
[2021-10-01] MEDS: ASPIRIN 81 MG CHEW TAB PO SCH (11:00)
[2021-10-01] MEDS ORDERED: ONDANSETRON HCL 4 MG ORAL DISINTEGRATING TAB PO PRN (14:15)
[2021-10-01] MEDS: BUMETANIDE 1 MG TAB PO SCH (17:08)
[2021-10-01 18:16] LABS: CREATININE,URINE RANDOM 45.68 mg/dL (47-110); TOTAL PROTEIN 24HR, URINE 625.2 mg/24hr (50-100); TOTAL PROTEIN, URINE 30.5 mg/dL (1-14)
[2021-10-01] MEDS: INSULIN GLARGINE 100 UNITS/ML VIAL SQ SCH (19:58)
[2021-10-01] MEDS: SIMVASTATIN 20 MG TAB PO SCH (20:04)
[2021-10-01] MEDS: TRAZODONE HCL 50 MG TAB PO SCH (20:04)
[2021-10-02] VITALS: BP 131/55
[2021-10-02 04:00] VITALS: BP 109/44
[2021-10-02] MEDS: LEVOTHYROXINE SODIUM 25 MCG TABLET PO SCH (05:46)
[2021-10-02 06:46] LABS: ALBUMIN 3.1 g/dL (3.5-5.0); ALBUMIN/GLOBULIN RATIO 0.7 (0.8-2.0); ANION GAP 15.8 mmol/L (8-16); CALCIUM 9.6 mg/dL (8.4-10.2); CREATININE, SERUM 3.28 mg/dL (0.57-1.11); POTASSIUM 3.8 mmol/L (3.5-5.1)
[2021-10-02 08:25] VITALS: BP 117/55
[2021-10-02 08:45] VITALS: BP 117/55
[2021-10-02] MEDS: NON-FORMULARY MEDICATION (Icosapent Ethyl (Vascepa) 2 CAP) PO SCH ×2 (09:00→17:00)
[2021-10-02] MEDS: ASPIRIN 81 MG CHEW TAB PO SCH (09:10)
[2021-10-02] MEDS: PANTOPRAZOLE SOD 40 MG TABEC PO SCH (09:10)
[2021-10-02] MEDS: MULTIVITAMINS/MINERALS TAB PO SCH (09:10)
[2021-10-02] MEDS: METOPROLOL TARTRATE 50 MG TAB PO SCH ×2 (09:10→17:08)
[2021-10-02] MEDS: BUMETANIDE 1 MG TAB PO SCH ×2 (09:10→17:08)
[2021-10-02] MEDS: INSULIN LISPRO 100 UNIT/1 ML 3ML VIAL SQ SCH ×6 (09:11→17:09)
[2021-10-02 15:07] VITALS: BP 129/87
== END 2021-10-02 17:55 | disposition home or self-care (01) | DRG 291 ==
LOC: ER 14:43 → ERHOLD 17:08 → MED/SURG3 09-28 10:58
PROVIDERS: ADMIT Internal Medicine; ATTEND Internal Medicine
DX: I13.0 Hypertensive heart and chronic kidney disease with heart failure and stage 1 through stage 4 chronic kidney disease, or unspecified chronic kidney disease (principal); I50.33 Acute on chronic diastolic (congestive) heart failure; J96.00 Acute respiratory failure, unspecified whether with hypoxia or hypercapnia; N17.9 Acute kidney failure, unspecified; N18.4 Chronic kidney disease, stage 4 (severe); I42.9 Cardiomyopathy, unspecified; E11.22 Type 2 diabetes mellitus with diabetic chronic kidney disease; Z79.899 Other long term (current) drug therapy; Z08 Encounter for follow-up examination after completed treatment for malignant neoplasm; Z85.3 Personal history of malignant neoplasm of breast; E78.5 Hyperlipidemia, unspecified; R01.1 Cardiac murmur, unspecified; I35.0 Nonrheumatic aortic (valve) stenosis; E11.42 Type 2 diabetes mellitus with diabetic polyneuropathy; E11.319 Type 2 diabetes mellitus with unspecified diabetic retinopathy without macular edema; K21.9 Gastro-esophageal reflux disease without esophagitis; R60.0 Localized edema; Z20.822 Contact with and (suspected) exposure to COVID-19
CPT/HCPCS: 36415; 36600; 71045; 71250; 76770; 80053; 80061; 81001; 81050; 82550; 82553; 82570; 82575; 82607; 82746; 82805; 82948; 83036; 83540; 83605; 83735; 83880; 84156; 84443; 84466; 84484; 85025; 85610; 85730; 87040; 87086; 93005; 93306; 94660; 94799; 97139; 99251; 99285; J0696; J1940; U0002

== ENCOUNTER 2023-02-27 06:41 | Emergency (ER) | payer MEDICARE, OTHER ==
[~2023-02-27] VITALS: Ht 157.5 cm; Wt 87.5 kg
[2023-02-27 07:05] LABS: BASOPHILS % 0.2 % (0.0-1.0); EOSINOPHILS # (AUTO) 0.3 (0.0-0.4); EOSINOPHILS % 3.6 % (0.0-6.0); HEMATOCRIT 31.2 % (34.2-44.1); HEMOGLOBIN 9.9 g/dL (12.0-16.0); LYMPHOCYTES # (AUTO) 2.8 (1.0-3.2); LYMPHOCYTES % 30.5 % (18.0-39.1); MEAN CORPUSCULAR HEMOGLOBIN 29.4 pg (28-32); MEAN CORPUSCULAR HGB CONC 31.7 g/dL (31-35); MEAN CORPUSCULAR VOLUME 92.6 fL (81-99); MONOCYTES # (AUTO) 0.8 (0.2-0.8); MONOCYTES % 8.6 % (4.4-11.3); NEUTROPHILS # (AUTO) 5.2 (2.1-6.9); NEUTROPHILS % 56.9 % (38.7-80.0); PLATELET COUNT 167 x10e3/uL (140-360); RED BLOOD COUNT 3.37 x10e6/uL (3.6-5.1); RED CELL DISTRIBUTION WIDTH 17.6 % (11.7-14.4)
[2023-02-27 07:17] LABS: INR 0.91; PROTHROMBIN TIME 12.8 seconds (11.9-14.5)
[2023-02-27 07:27] LABS: ALANINE AMINOTRANSFERASE 13 IU/L (0-55); ALKALINE PHOSPHATASE 60 IU/L (40-150); ANION GAP 14.4 mmol/L (8-16); BLOOD UREA NITROGEN 31 mg/dL (7-26); BUN/CREATININE RATIO 8 (6-25); CALCIUM 8.9 mg/dL (8.4-10.2); CARBON DIOXIDE 32 mmol/L (22-29); CHLORIDE 101 mmol/L (98-107); CREATININE, SERUM 4.04 mg/dL (0.57-1.11); GLUCOSE 99 mg/dL (74-118); MAGNESIUM 2.2 MG/DL (1.3-2.1); POTASSIUM 3.4 mmol/L (3.5-5.1); SODIUM 144 mmol/L (136-145)
[2023-02-27 07:31] LABS: ALBUMIN/GLOBULIN RATIO 0.1 (0.8-2.0)
[2023-02-27 07:43] LABS: ALBUMIN 3.3 g/dL (3.5-5.0)
[2023-02-27] MEDS ORDERED: ASPIRIN 81 MG CHEW TAB PO STA (08:07)
[2023-02-27] MEDS ORDERED: ASPIRIN 81 MG ENTERIC COATED PO ONE (08:13)
[2023-02-27] MEDS ORDERED: CLOPIDOGREL BISULFATE 75 MG TAB ONE ×2 (08:13)
[2023-02-27] MEDS ORDERED: CLOPIDOGREL BISULFATE 300 MG TAB-DO NOT STOCK PO ONE (08:15)
[2023-02-27] MEDS ORDERED: HEPARIN 25,000 UNIT/D5W 250ML 800 UNIT in DEXTROSE 5% 250ML 250 ML IV SCH (08:30)
[2023-02-27] MEDS ORDERED: HEPARIN 25,000 UNIT DRIP IV ONE (08:32)
[2023-02-27 09:15] VITALS: O2SAT 98
[2023-02-27] MEDS ORDERED: NITROGLYCERIN 2% OINT 1 GM PKT ONE (09:58)
[2023-02-27] MEDS ORDERED: NITROGLYCERIN 2% OINT 1 GM PKT TOP ONE (10:00)
== END 2023-02-27 10:05 | disposition other institution (70) ==
LOC: ER 06:44
DX: R06.02 Shortness of breath (principal); I21.4 Non-ST elevation (NSTEMI) myocardial infarction; I12.9 Hypertensive chronic kidney disease with stage 1 through stage 4 chronic kidney disease, or unspecified chronic kidney disease; E11.22 Type 2 diabetes mellitus with diabetic chronic kidney disease; N18.9 Chronic kidney disease, unspecified; Z99.2 Dependence on renal dialysis; I50.9 Heart failure, unspecified; Z20.822 Contact with and (suspected) exposure to COVID-19; R94.31 Abnormal electrocardiogram [ECG] [EKG]
CPT/HCPCS: 0223U; 36415; 71045; 80053; 83735; 83880; 84484; 85025; 85610; 85730; 93005; 99284